=== PATIENT | female | born 1940 | race Caucasian/White ===

== ENCOUNTER → 2016-11-27 | Outpatient (CLI) | payer MEDICARE, BC | LOC: MAMMO 09:19 | DX: Z12.31 Encounter for screening mammogram for malignant neoplasm of breast (principal) | CPT/HCPCS: G0202 ==

== ENCOUNTER 2017-06-21 10:30 | Outpatient (RCR) | payer MEDICARE, BC | END 2017-06-21 11:00 | disposition home or self-care (01) | LOC: PT 10:30 | DX: M54.32 Sciatica, left side (principal) | CPT/HCPCS: G8978-GP; G8979-GP ==

== ENCOUNTER → 2017-06-28 | Outpatient (CLI) | payer MEDICARE, BC | LOC: RAD 09:54 | DX: M79.645 Pain in left finger(s) (principal) ==

== ENCOUNTER → 2017-12-11 | Outpatient (CLI) | payer MEDICARE, BC | LOC: MAMMO 10:30 | DX: Z12.31 Encounter for screening mammogram for malignant neoplasm of breast (principal) ==

== ENCOUNTER → 2018-12-31 | Outpatient (CLI) | payer MEDICARE, BC | LOC: MAMMO 14:57 | DX: Z12.31 Encounter for screening mammogram for malignant neoplasm of breast (principal) ==

== ENCOUNTER → 2020-01-20 | Outpatient (CLI) | payer MEDICARE, BC | LOC: MAMMO 13:41 | DX: Z12.31 Encounter for screening mammogram for malignant neoplasm of breast (principal) ==

== ENCOUNTER 2020-09-14 09:08 | Outpatient (RCR) | payer MEDICARE, BC | END 2020-12-13 | disposition home or self-care (01) | LOC: PT | DX: I63.19 Cerebral infarction due to embolism of other precerebral artery (principal) ==

== ENCOUNTER → 2021-02-15 | Outpatient (CLI) | payer MEDICARE, BC | LOC: MAMMO 10:13 | DX: Z12.31 Encounter for screening mammogram for malignant neoplasm of breast (principal) ==

== ENCOUNTER → 2023-12-24 | Outpatient (CLI) | payer MEDICARE, BC ==
[2023-12-24 14:10] LABS: URINE APPEARANCE SLIGHTLY CLOUDY (CLEAR); URINE COLOR LIGHT YELLOW (YELLOW)
[2023-12-24 14:13] LABS: PH-URINE 5.5 (5.0 - 8.0); URINE BILIRUBIN NEGATIVE (NEGATIVE); URINE BLOOD 1+ (NEGATIVE); URINE GLUCOSE NEGATIVE (NEGATIVE); URINE KETONE NEGATIVE (NEGATIVE); URINE LEUKOCYTE ESTERASE 3+ (NEGATIVE); URINE NITRATE NEGATIVE (NEGATIVE); URINE PROTEIN(semi-quant) NEGATIVE (NEGATIVE); URINE WBC >50 /hpf (0-3)
== END ==
LOC: LAB 13:31
PROVIDERS: Nurse Practitioner
DX: N39.0 Urinary tract infection, site not specified (principal)

== ENCOUNTER → 2024-02-21 | Outpatient (CLI) | payer MEDICARE, BC ==
[~2024-02-21] MED LIST: CALCIUM CARBON500 M3 PO; DESYREL50 MG PO; DONEPEZIL HCL5 M1 PO; ELIQUIS2.5 MG PO; EPINEPHRIN0.3 MG/0.3 IJ; IMODIUM 2MG CAPS2 MG PO; KLOR-CON M1010 MEQ PO; LEVOTHYROXINE100 MC1 PO; LOPRESSOR 225 MG/TAB PO; MELATIN 3 MG-11 TAB PO; MUPIROCIN2% TP; NIZORAL CREAM15 GM TP; ROSUVASTATIN CA20 MG PO; SERTRALINE50 MG PO; TERBINAFINE250 MG PO; TORSEMIDE10 M1 PO
[2024-02-21 12:28] LABS: HEMATOCRIT 35.5 % (37.0-47.0); MEAN CELL VOLUME 75 fl (78-100); MEAN CORPUSCULAR HEMOGLOBIN 23 pg (27-31); MEAN CORPUSCULAR HGB CONC 31 g/dL (33-37); MEAN PLATELET VOLUME 10.8 fl (7.4-10.4); PLATELET COUNT 263 K/mm3 (130-400); RED BLOOD COUNT 4.71 M/mm3 (4.10-5.30); RED CELL DISTRIBUTION WIDTH 18.4 % (11.5-14.5); WHITE BLOOD COUNT 13.7 K/mm3 (4.8-10.8)
[2024-02-21 12:36] LABS: ALBUMIN 3.3 g/dL (3.4-4.8)
[2024-02-21 12:38] LABS: TOTAL PROTEIN 7.4 g/dL (6.2-8.1)
[2024-02-21 12:40] LABS: TOTAL BILIRUBIN 0.9 mg/dL (0.2-1.2)
[2024-02-21 12:49] LABS: BAND 27 % (0-10); LYMPHOCYTE 4 % (20-51); MICROCYTOSIS 1+; MONOCYTE 3 % (3-10); NEUTROPHILS 66 % (42-75)
[2024-02-21 12:50] LABS: HYPOCHROMIA 1+
== END ==
LOC: LAB 11:53
PROVIDERS: Nurse Practitioner
DX: Z00.00 Encounter for general adult medical examination without abnormal findings (principal); M47.816 Spondylosis without myelopathy or radiculopathy, lumbar region; M43.9 Deforming dorsopathy, unspecified

== ENCOUNTER 2024-02-28 09:10 | Inpatient (IN) | payer MEDICARE, BC ==
[~2024-02-28] VITALS: Ht 165.1 cm; Wt 81.8 kg
--- NOTE | 2024-02-28 10:00 | NUR ---
PATIENT SWITCHED FROM ACUTE STAY TO SWINGBED AT THIS TIME. SWINGBED EXPLAINED TO DAUGHTER, ALL QUESTIONS ANSWERED. VERBALIZED UNDERSTANDING.
[2024-02-28 10:42] LABS: HEMATOCRIT 29.2 % (37.0-47.0); HEMOGLOBIN 9.5 g/dL (12.5-16.0); MEAN CELL VOLUME 72 fl (78-100); MEAN CORPUSCULAR HEMOGLOBIN 23 pg (27-31); MEAN CORPUSCULAR HGB CONC 33 g/dL (33-37); MEAN PLATELET VOLUME 10.3 fl (7.4-10.4); PLATELET COUNT 302 K/mm3 (130-400); RED BLOOD COUNT 4.06 M/mm3 (4.10-5.30); RED CELL DISTRIBUTION WIDTH 19.2 % (11.5-14.5); WHITE BLOOD COUNT 13.7 K/mm3 (4.8-10.8)
[2024-02-28] MEDS ORDERED: Piperacillin/Tazobactam Sodium 3.375 GM in NS 100 ML IV SCH (10:45)
[2024-02-28 10:47] LABS: ALBUMIN 2.7 g/dL (3.4-4.8)
[2024-02-28 10:49] LABS: CALCIUM 8.6 mg/dL (8.3-10.5)
[2024-02-28 10:50] LABS: TOTAL PROTEIN 6.6 g/dL (6.2-8.1)
[2024-02-28 10:52] LABS: TOTAL BILIRUBIN 0.9 mg/dL (0.2-1.2)
[2024-02-28] MEDS ORDERED: Ibuprofen 200 MG TAB PO PRN (11:00)
[2024-02-28] MEDS ORDERED: Phenylephrine/Mineral Oil/Petrolatum 57 GM TUBE RC PRN (11:00)
[2024-02-28] MEDS ORDERED: diphenhydrAMINE 25 MG CAP PO PRN (11:00)
[2024-02-28] MEDS ORDERED: Acetaminophen 500 MG TAB PO PRN (11:00)
[2024-02-28] MEDS ORDERED: Acetaminophen 500 MG TAB PO SCH (11:17)
[2024-02-28 11:22] LABS: BAND 2 % (0-10); LYMPHOCYTE 8 % (20-51); NEUTROPHILS 80 % (42-75)
[2024-02-28 11:23] LABS: HYPOCHROMIA 2+; METAMYELOCYTE 2 % (0-0); MICROCYTOSIS 2+; MONOCYTE 7 % (3-10); OVALOCYTES 2+; POLYCHROMASIA 1+; SCHISTOCYTES 1+; TARGET CELLS 1+
[2024-02-28] MEDS ORDERED: traMADol 50 MG TAB PO PRN (12:00)
[2024-02-28] MEDS ORDERED: Ibuprofen 200 MG TAB PO SCH (14:17)
--- NOTE | 2024-02-28 18:49 | NUR ---
REPORT TO JACK ATWOOD.
[2024-02-28 19:00] VITALS: BP 119/72
--- NOTE | 2024-02-28 20:30 | NUR ---
Patient resting in bed with eyes closed. Awakened for HS meds and given crushed in pudding. Returns to resting with eyes closed. Disoriented to place and year. States "I don't know".
[2024-02-28] MEDS ORDERED: Apixaban 5 MG TABLET PO SCH (21:00)
[2024-02-28] MEDS ORDERED: Melatonin 3 MG TAB PO SCH (21:00)
[2024-02-28] MEDS ORDERED: traZODone 50 MG TAB PO SCH (21:00)
[2024-02-28] MEDS ORDERED: Metoprolol Tartrate 25 MG TAB PO SCH (21:00)
[2024-02-28 23:15] VITALS: BP 104/70
[2024-02-29 03:00] VITALS: BP 110/72
--- NOTE | 2024-02-29 06:09 | NUR ---
Patient reports she "thinks so" to if rested well this noc.
[2024-02-29 07:00] VITALS: BP 110/76
[2024-02-29] MEDS ORDERED: Torsemide 20 MG TAB PO SCH (09:00)
[2024-02-29] MEDS ORDERED: Sertraline 50 MG TAB PO SCH (09:00)
[2024-02-29] MEDS ORDERED: Donepezil 5 MG TAB PO SCH (09:00)
[2024-02-29] MEDS ORDERED: Calcium Carbonate 500 MG TAB PO SCH (09:00)
[2024-02-29 11:00] VITALS: BP 101/65
[2024-02-29 15:02] VITALS: BP 115/90
[2024-02-29 19:20] VITALS: BP 111/72
[2024-02-29] MEDS ORDERED: diphenhydrAMINE 25 MG CAP PO SCH (21:00)
--- NOTE | 2024-02-29 23:04 | NUR ---
PT ALERT AND ORIENTED TO SELF, PT REORIENTED. PT RESTING IN BED. CATH CARE PERFORMED BY [facility]. PT ASSESSED AND MEDICATIONS DELIVERED. PT DENIES ANY PAIN AT THIS TIME. PT INNER GROIN AREA RED, CLEANED/DRIED/POWDER APPLIED BY THIS NURSE AND [facility]. PT NOW RESTING IN BED WITH CALL LIGHT IN REACH, PT DENIES ANY FURTHER NEEDS AT THIS TIME
[2024-02-29 23:19] VITALS: BP 113/73
[2024-03-01 03:00] VITALS: BP 126/81
[2024-03-01 07:37] VITALS: BP 140/85
--- NOTE | 2024-03-01 10:10 | NUR ---
PTS DAUGHTER COMES TO NURSES DESK WANTING TO SPEAK TO SOMEONE ABOUT THE PT NOT SLEEPING AT NIGHT. PTS DAUGHTER STATES THAT SHE IS CONCERNED THE PT WILL NOT PARTICIPATE IN THERAPY BECAUSE SHE IS TOO TIRED DURING THE DAY AND DOESNT SLEEP AT NIGHT, SINCE THE PREVIOUS COUPLE OF DAYS WHEN THE PT WAS ASKED IF SHE COULD PARTICIPATE IN MOVEMENTS SHE DID NOT WANT TO. PTS DAUGHTER IS UPSET THAT THE PTS TRAZODONE DONE WAS CHANGED FROM HER HOME DOSE (THE DOSE DID NOT HELP HER SLEEP AT HOME EITHER PER THE DAUGHTER). THIS RN AND PRECIA RN EXPLAINED TO THE PTS DAUGHTER THAT PARTICIPATING IN THERAPY COULD HELP HER BE MORE TIRED AT NIGHT TIME, SHE WAS SLEEPING SO MUCH WHEN SHE GOT HERE THAT THEY WERE NOT GOING TO CONTINUE TO GIVE HER THE HOME DOSE, OUR INPATIENT PROVIDERS WILL BE HERE TOMORROW TO FURTHER DISCUSS HER CONCERNS. PTS DAUGHTER IS FRUSTRATED STATING THAT SHE IS JUST TRYING TO ADVOCATE FOR HER MOTHER AND WAS NOT INTERESTED IN HEARING OUR EXPLANATIONS FOR NOT CHANGING HER MEDICATIONS YESTERDAY WHEN SHE ASKED. THIS RN ACKNOWLEDGED HER CONCERNS MANY TIMES DURING THE CONVERSATION AND LET HER KNOW THE INFO WOULD BE PASSED ON.
[2024-03-01 11:01] VITALS: BP 113/75
--- NOTE | 2024-03-01 13:37 | NUR ---
1200 THIS NURSE TOOK REPORT FROM JACK LARRY. 1245 PTS FAMILY LEFT THE FACILITY. 1250 THIS RN ASSESSED PT. PT WAS RESTING IN HER CHAIR WITH EYES CLOSED. THIS NURSE ASKED ABOUT HER PAIN, PT DENIES ANY PAIN AT THIS TIME.
[2024-03-01 14:51] VITALS: BP 123/84
--- NOTE | 2024-03-01 18:24 | NUR ---
PTS DAUGHTER IS HERE. SHE EXPRESSES ANXIETY AROUND HER MOM GETTING STRONGER AND READY FOR PT IN THE MORNING. PT USED TO TAKE TRAZADONE AT HOME FOR 50 MG. PT HAS BEEN PRESCRIBED 25MG AT THIS TIME. PTS DAUGHTER IS REQUESTING FOR HER TRAZADONE TO BE INCREASED TO HER HOME DOSE. WHICH WAS 50MG. RN EDUCATED FAMILY ABOUT THE USE OF PAIN MEDICATIONS DURING THE DAY CAN CAUSE DROWSINESS.
[2024-03-01 19:00] VITALS: BP 106/73
--- NOTE | 2024-03-01 19:15 | NUR ---
PER PROVIDER ON SHIFT MEDICATIONS WILL BE DISCUSSED WITH A HOSPITALIST ON Saturday03/02/2024.
[2024-03-01 23:06] VITALS: BP 112/71
[2024-03-02 03:00] VITALS: BP 135/78
[2024-03-02 05:35] LABS: BASO # 0.09 K/mm3 (0.02-0.10); EOS # 0.25 K/mm3 (0.04-0.40); EOS % 2.4 % (1.0-5.0); HEMATOCRIT 29.7 % (37.0-47.0); HEMOGLOBIN 9.6 g/dL (12.5-16.0); LYMPH# 1.12 K/mm3 (1.50-4.00); MEAN CELL VOLUME 72 fl (78-100); MEAN CORPUSCULAR HEMOGLOBIN 23 pg (27-31); MEAN CORPUSCULAR HGB CONC 32 g/dL (33-37); MEAN PLATELET VOLUME 10.1 fl (7.4-10.4); MONO # 0.57 K/mm3 (0.20-0.80); NEU # 8.16 K/mm3 (1.40-6.50); PLATELET COUNT 360 K/mm3 (130-400); RED BLOOD COUNT 4.12 M/mm3 (4.10-5.30); RED CELL DISTRIBUTION WIDTH 19.7 % (11.5-14.5); WHITE BLOOD COUNT 10.3 K/mm3 (4.8-10.8)
[2024-03-02 05:45] LABS: ALBUMIN 2.8 g/dL (3.4-4.8)
[2024-03-02 05:46] LABS: CALCIUM 9.1 mg/dL (8.3-10.5)
[2024-03-02 05:47] LABS: TOTAL PROTEIN 7.2 g/dL (6.2-8.1)
[2024-03-02 07:27] VITALS: BP 131/81
--- NOTE | 2024-03-02 16:32 | NUR ---
PATIENT IN RECLINER UPON ENTERING ROOM TO GIVE MORNING MEDICATIONS. PATIENT WAS ABLE TO SWALLOW SMALLER PILLS WHOLE, AND LARGER ONES WERE CRUSHED IN APPLESAUCE. PATIENT HAD BEDBATH THIS AM PRIOR TO BREAKFAST WHILE SHE WAS STILL IN BED PER PCT. DAUGHTER WAS INFORMED. PATIENT HAD COMPLAINED OF NAUSEA TO THERAPY, AND THEN ENDED UP REFUSING THERAPY. AFTER ABOUT AN HOUR PATIENT WAS ASSISTED VIA WHEELCHAIR WITH FAMILY GOING AROUND THE FACILITY. NO FUTHER C/O NAUSEA.
[2024-03-02 20:04] VITALS: BP 110/71
[2024-03-02] MEDS ORDERED: Zolpidem 5 MG TAB PO SCH (21:00)
[2024-03-02] MEDS ORDERED: Torsemide 20 MG TAB PO SCH (21:00)
[2024-03-03 07:00] VITALS: BP 124/77
[2024-03-03] MEDS ORDERED: Miconazole 2% Topical Powder BOTTLE TP SCH (10:17)
--- NOTE | 2024-03-03 10:48 | NUR ---
0700 recieved report from JACK ham
--- NOTE | 2024-03-03 10:48 | NUR ---
Pt ambualted to bathroom with walker and gaitbelt. Pt was a 2 person assist while rising from chair, was a 1 person assist while walking to bathroom for shower. Pt had shower and wound care done. This nurse recieved an order from provider for nistatin for gagandeep-area that is reddened. Pt tolerated shower without any difficulty, was dressed and ambualted back to chair without any difficulty. Daughter updated and all questions answered.
--- NOTE | 2024-03-03 12:18 | NUR ---
pt given 1000mg tylenol for leg pain 11/18.
[2024-03-03 19:00] VITALS: BP 108/73
--- NOTE | 2024-03-03 22:44 | NUR ---
pt alert and oriented x2, pt resting in bed on entry. pt reports no pain at this time. pt assessed and medications delivered without complication. pt resting in bed with pillows set to alleviate pressure by domenico pct and erickson pct. pt now resting well in bed with call light in reach and bed alarm on
--- NOTE | 2024-03-04 06:50 | NUR ---
PT SLEPT VERY WELL LAST NIGHT, PT ALERT AND ORIENTED X3 THIS MORNING, MORNING MEDICATIOSN DELIVERED. PT REPORTS FEELING "WIPED OUT DESPITE REST", PT DENIES FURTHER NEEDS
[2024-03-04 07:10] VITALS: BP 123/75
--- NOTE | 2024-03-04 12:35 | NUR ---
PTS FAMILY HAS REPORTED PT IS FATIGUED. PTS FAMILY IS AKING FOR SOFTER AND EASIER TO EAT FOODS FOR TODAY AND IN THE FUTURE.
--- NOTE | 2024-03-04 12:37 | NUR ---
THIS NURSE NOTICED PT COUGHING AFTER EATING AND DRINKING. PT AND FAMILY ENCOURAGED TO HAVE PT EAT A BITE, FOLLOWED BY A DRINK, AND TO REPEAT. ALWAYS HAVE PT SITTING UPRIGHT IN CHAIR TO EAT.
--- NOTE | 2024-03-04 18:45 | NUR ---
Received report from Akin SANTIAGO.
--- NOTE | 2024-03-04 19:50 | NUR ---
Pt sitting in recliner watching TV. Pt reports pain her bilateral feet. Pt is given Tramadol for pain. Pt is able to take medications 1-2 tabs at a time. Nurse puts lotion on pt back, lower legs and feet. Maya area is very excoriated and the skin is peeling. Maya area is preformed. Badillo cathter is in place and draining to dependent drainage bag. Pt is assisted to bed. [facility]All [facility] in reach of pt, she is encouraged to call if assistance is needed.
[2024-03-04 19:54] VITALS: BP 118/71
--- NOTE | 2024-03-05 07:03 | NUR ---
Pt report given to Akin SANTIAGO.
[2024-03-05 07:40] VITALS: BP 125/77
--- NOTE | 2024-03-05 09:02 | NUR ---
THIS NURSE Assessed pt. While administering medication, pt falls asleep. pt can barely keep her eyes open. Pt will hold her own drink cup. Pt states she needs a nap. pt denies any pain, shortness of breath, or gi distress. Pt ate approximanetly 45% of her breakfast. This nurse covered pt with blanket and her calllight is within reach.
--- NOTE | 2024-03-05 16:14 | NUR ---
PTS DAUGHTER IS PRESENT. PT DENIES ANY PAIN. PT DOESN'T KEEP EYES OPEN AND FALLS ASLEEP WHEN TALKING TO HER.
[2024-03-05 19:00] VITALS: BP 102/64
[2024-03-06 07:00] VITALS: BP 124/76
--- NOTE | 2024-03-06 08:25 | NUR ---
Clarified with Heath in pharmacy that colace is a gelatin product and is a contraindication to patient allergy. He suggests removing it from patient MAR. Dr. Shelton notified.
--- NOTE | 2024-03-06 09:16 | NUR ---
Report given to Cruz Alvarado RN.
[2024-03-06] MEDS ORDERED: Famotidine 20 MG TAB PO PRN (12:30)
--- NOTE | 2024-03-06 18:22 | NUR ---
PT. ATE WELL FOR SUPPER WITH 1:1 STAFF ASSIST. SLEEPY THIS AFTERNOON, MORE AWAKE AT SUPPER TIME.
[2024-03-06 19:28] VITALS: BP 105/68
[2024-03-06] MEDS ORDERED: Apixaban 2.5 MG TABLET PO SCH (21:00)
[2024-03-07 07:15] VITALS: BP 114/72
--- NOTE | 2024-03-07 08:50 | NUR ---
A&O to self, disoriented to place, time and situation, RA, no c/o pain or discomfort. Reports she didn't sleep well last night. Encouraged to open eye. Follows commands. Swallowed pills whole, one at time. 2:1 assist with gait belt and walker from bed to chair. Declined to use commode. Last BM 03/05/24. Chair in locked position, call light within reach.
--- NOTE | 2024-03-07 11:19 | NUR ---
Son at the nurses station requesting information about Zee. Family is concerned about Zee's food intake. They are concerned she is losing weight. Son was told by speech therapy her food consistency would not be changed. She's currently on soft and bite sized. He asked if he could bring in food from outside. Understands her current restrictions. Asking if provider can review current food consistency/diet. Son asking if Zee could change medications from Sertraline to Remeron. The Remeron could possibly help with sleep at night. Requesting hospitalist review medications and possibly change, if applicable. Requests from family discussed with Dr. Cadet.
--- NOTE | 2024-03-07 14:18 | NUR ---
Son at nurse station asking if Dr. Cadet agreed to dicontinue Ambien and Sertraline. Also, start Remeron to help with sleep. Discussed further with Dr. Cadet. Notified Son he plans to make those changes to her medication. Family concerned Zee is sleeping throughout the day. She has reported to family that she is awake throughout the night. Zee ate 50% of lunch, improvement from breakfast. Family asked if the kitchen change her dinner to avoid any mechanical soft foods. Education provided to family that Zee continues to be on a bite size/cut up menu but pork products (or others) may be pureed d/t consistancy. Family asked she recieve the menu items cut up. Kitchen notified, and agrees to comply. Zee reports headache. PRN given, as ordered. Son requested Zee sit in w/c. Zee declined at this time. Chair in locked position. Call light within reach.
--- NOTE | 2024-03-07 14:33 | NUR ---
PCT answered call light. Zee's son notified staff he is giving Zee a sugar cookie. Education given about patient's diet. Chair in locked position. Call light within reach.
--- NOTE | 2024-03-07 15:09 | NUR ---
Son, Gerald at nurses station. Requesting Zee walk d/t no therapy this weekend. 2:1 assist with gaitbelt and walker.
--- NOTE | 2024-03-07 15:32 | NUR ---
Ambulated from chair to restroom. approx 40' 2:1 assist with gaitbelt and walker. Tolerated it well. Resting quietly in chair. Chair alarm on, call light within reach.
[2024-03-07 19:00] VITALS: BP 108/69
--- NOTE | 2024-03-07 19:30 | NUR ---
Patient assisted to bed 1 assist short distance with weak gait and walker. Alert to self, place, time of day but not month or year. Mod assist with legs into bed. HS meds all reviewed and given whole in pudding. BLE elevated on pillow.
[2024-03-07] MEDS ORDERED: Mirtazapine 15 MG TAB PO SCH (21:00)
--- NOTE | 2024-03-07 21:30 | NUR ---
Patient resting with eyes closed.
--- NOTE | 2024-03-07 22:30 | NUR ---
Patient continues resting with eyes closed.
--- NOTE | 2024-03-08 00:40 | NUR ---
THIS RN WENT TO PTS ROOM FOR CALL LIGHT ON. PT STATES SHE IS VERY THIRSTY AND IS GETTING AGGITATED. IT WAS EXPLAINED TO THE PT AGAIN THAT SHE IS ON A FLUID RESTRICTION AND SHE HAS REACHED HER MAX AMOUNT LIQUIDS FOR THIS 24 HOURS. PT WILL BE GIVEN 100MLS MORE AT THIS TIME.
--- NOTE | 2024-03-08 01:23 | NUR ---
Patient resting with eyes closed.
--- NOTE | 2024-03-08 03:00 | NUR ---
Patient awakened when RESOURCE DEVELOPMENT MANAGER into room and repositioned patient.
--- NOTE | 2024-03-08 04:35 | NUR ---
Patient rests with eyes closed. Moving left arm at times.
--- NOTE | 2024-03-08 05:30 | NUR ---
Patient awake calling out water water. Patient has met fluid restriction. Gave 50mls of water but required more to swallow pills and another 50mls given. Repositioned. States "I'm not sure" to getting sleep this noc. Marked hourly rounds on board if patient sleeping or awake, so as family has an idea how her night went.
--- NOTE | 2024-03-08 05:56 | NUR ---
Patient resting with eyes closed.
[2024-03-08 07:00] VITALS: BP 97/61
[2024-03-08 19:00] VITALS: BP 101/66
[2024-03-09 05:56] LABS: BASO # 0.04 K/mm3 (0.02-0.10); EOS % 5.8 % (1.0-5.0); HEMATOCRIT 34.7 % (37.0-47.0); LYMPH# 1.03 K/mm3 (1.50-4.00); MEAN CELL VOLUME 74 fl (78-100); MEAN CORPUSCULAR HEMOGLOBIN 24 pg (27-31); MEAN CORPUSCULAR HGB CONC 32 g/dL (33-37); MEAN PLATELET VOLUME 9.1 fl (7.4-10.4); MONO # 0.42 K/mm3 (0.20-0.80); NEU # 3.35 K/mm3 (1.40-6.50); PLATELET COUNT 559 K/mm3 (130-400); RED BLOOD COUNT 4.69 M/mm3 (4.10-5.30); RED CELL DISTRIBUTION WIDTH 21.3 % (11.5-14.5); WHITE BLOOD COUNT 5.2 K/mm3 (4.8-10.8)
[2024-03-09 06:08] LABS: ALBUMIN 2.9 g/dL (3.4-4.8)
[2024-03-09 06:09] LABS: CALCIUM 8.9 mg/dL (8.3-10.5)
[2024-03-09 06:10] LABS: TOTAL PROTEIN 7.8 g/dL (6.2-8.1)
[2024-03-09 06:12] LABS: TOTAL BILIRUBIN 0.7 mg/dL (0.2-1.2)
[2024-03-09 07:00] VITALS: BP 132/84
--- NOTE | 2024-03-09 09:45 | NUR ---
Pt A&O x3 upon assessment. Denies pain. Pills split in half, taken with water. Evelyne, ARTIFICIAL FLOWERS STARCHER in room to evaluate pt swallowing while eating. States diet can be changed from soft & bite size back to general diet with large foods cut up. Order changed. Pt upright in chair upon departure. Call light in reach, chair alaram set. All needs met at this time.
--- NOTE | 2024-03-09 18:48 | NUR ---
Shift report given to JACK Evans.
[2024-03-09 19:00] VITALS: BP 127/85
[2024-03-10 07:35] VITALS: BP 101/70
--- NOTE | 2024-03-10 11:56 | NUR ---
PROVIDER GAVE ORDERS TO START BLADDER TRAINING. ANDREWS WAS CLAMPPED AT 1030. AT 1115, PATIENT FELT THE URGE TO VOID. ANDREWS UNCLAMPPED FOR ABOUT 10 MIN AND THEN RECLAMPPED. PATIENT CONTINUES TO FALL ASLEEP QUICKLY. WHEN FAMILY IS IN ROOM, THEY TRY AND KEEP HER UP, SO SHE IS ABLE TO SLEEP BETTER AT NIGHT. STAFF IS CURRENTLY SITTING WITH PATIENT IN ROOM FOR LUNCH, FAMILY HAVE LEFT FOR THE DAY.
--- NOTE | 2024-03-10 14:34 | NUR ---
THIS NURSE PROVIDED WOUND DRESSING CHANGE. PT TOLERATED WELL. 1. CLEANSED WOUND WITH HIBICLENS 2. RINSED WITH STERILE WATER AND PATTED DRY WITH STERILE 4X4S 3. APPLIED XEROFAOM GAUZE TO OPEN AREAS 4. APPLIED OPTILOCK 5. WRAPPED WITH SOFT ROLL
--- NOTE | 2024-03-10 18:02 | NUR ---
1600 during pain assesment pt stated she " just woke up and It's like Im in a different world." pt repeated questions this nurse answered. i.e. what time is it?, What is today?, How did I get here?, How long do I have to stay here? pt is oriented to herself.
--- NOTE | 2024-03-10 19:03 | NUR ---
REPORT FROM WAVE, RN
--- NOTE | 2024-03-10 20:00 | NUR ---
PATTIENT TAKEN TO BED
[2024-03-10 20:20] VITALS: BP 131/83
--- NOTE | 2024-03-10 21:00 | NUR ---
AWAKE WATCHING TELEVISION
--- NOTE | 2024-03-10 22:18 | NUR ---
UNCLAMPED ANDREWS, 150 URINE OUT
--- NOTE | 2024-03-11 02:00 | NUR ---
PATIENT RESTING QUIETLY IN BED, BREATHING UNLABORED ON RA
--- NOTE | 2024-03-11 03:12 | NUR ---
ANDREWS UNCLAMPPED. PATIENT RESTING QUIETLY
--- NOTE | 2024-03-11 05:26 | NUR ---
PATIENT RESTING QUIETLY. WAKES EASILY WITH CARES.
--- NOTE | 2024-03-11 07:16 | NUR ---
report recieved from JACK Azul
[2024-03-11 07:35] VITALS: BP 114/74
--- NOTE | 2024-03-11 09:21 | NUR ---
UNLAMPED ANDREWS AT THIS TIME. PT IS NO LONGER ON FLUID RESTIRCTION AT THIS TIME, WILL CONTINUE TO DO CLOSE I/O. PT TOOK MEDICATION WHOLE, BIG PILLS IN HALF WITH WATER.
--- NOTE | 2024-03-11 10:00 | NUR ---
PT WOUND CARE PERFORMED. PT TOLERATED WITHOUT DIFFICULTY. AMBUALTED WITH WALKER AND GAIT BELT TO BATHROOM X1 ASSIST.
--- NOTE | 2024-03-11 11:03 | NUR ---
pt resting in chair at this time. legs elevated.
--- NOTE | 2024-03-11 11:30 | NUR ---
clamped leach at this time
--- NOTE | 2024-03-11 12:42 | NUR ---
pt resting in chair urinal bag unclammped. pt did not eat lunch. states she was not hungry. this nurse offered several times for bites, pt refused. this nurse asked pt to go for a walk, pt declined offer at this time.
--- NOTE | 2024-03-11 13:00 | NUR ---
unclamped leach at this time
--- NOTE | 2024-03-11 13:17 | NUR ---
pt was willing to ambulate with this nurse and pct. pt ambulated about 75 yards with walker and gaitbelt. this nurse educated patient about the imporatnce of moving and not sitting all day.
--- NOTE | 2024-03-11 14:00 | NUR ---
son updated at this time
--- NOTE | 2024-03-11 14:49 | NUR ---
clamped leach at this time
--- NOTE | 2024-03-11 16:12 | NUR ---
urinary catheter removed at this time. pt ambulated to bathroom with walker, gaitbelt, x1 assist.
--- NOTE | 2024-03-11 17:45 | NUR ---
pt ate 90% of supper today. had pleasant conversation with this nurse, tylenol was given for headache, pt stated it was a mild headache. pills cut in half, pt took them with water without any difficulties.
[2024-03-11 19:00] VITALS: BP 106/71
--- NOTE | 2024-03-11 19:20 | NUR ---
Report received from Alexandra SANTIAGO. Patient sitting up in recliner watching TV. A/O to self only. Asks where she is and how she got here, reoriented to place and situation, then asks again a few minutes later. Denies pain, SOA or cough. Assessment completed. Denies wants or needs at this time. Chair alarm on. Call light in reach.
--- NOTE | 2024-03-11 20:41 | NUR ---
HS torsemide held per DrIsak order and times changed.
--- NOTE | 2024-03-11 20:59 | NUR ---
Refused HS supplement.
--- NOTE | 2024-03-12 06:12 | NUR ---
Rested well. Up to BR PRN and voiding without difficulty. AM medications taken whole without difficulty.
--- NOTE | 2024-03-12 06:53 | NUR ---
Report to Argenis SANTIAGO
--- NOTE | 2024-03-12 07:00 | NUR ---
REPORT RECEIVED FROM ISAIAH OROSCO
[2024-03-12 07:10] VITALS: BP 132/78
--- NOTE | 2024-03-12 07:40 | NUR ---
PATIENT ASSISTED TO CHAIR x1 ASSIST WITH WALKER AT THIS TIME. PATIENT DENIES NEEDS OR COMPLAINTS. CHIAR ALARM ON, CALL LIGHT WITHIN REACH
[2024-03-12] MEDS ORDERED: Torsemide 20 MG TAB PO SCH (08:00)
--- NOTE | 2024-03-12 08:50 | NUR ---
PATIENT SITTING IN CHIAR AT THIS TIME, A&Ox2, PLEASENT. PATIENT STATES PAIN TO LEGS AT THIS TIME, DENIES NEED FOR PAIN MEDICATION AT THIS TIME. ASSESSMENT COMPLETE. PATIENT IS FORGETFUL AND CONFUSED. PATIENT WATER REFILLED AT THIS TIME AFTER TAKING MEDICATIONS. PATIENT DENIES OTHER NEEDS OR COMPLAINTS AT THIS TIME. CHAIR ALARM ON, CALL LIGHT WITH REACH.
--- NOTE | 2024-03-12 13:00 | NUR ---
DRESSINGS CHANGED TO BLE AT THIS TIME. NO DRAINAGE NOTED TO OPTILOCK ON LLE. PATIENT TOLERATED PROCEDURE WELL.
--- NOTE | 2024-03-12 14:30 | NUR ---
OIL PROCESSING TECHNICIAN NOTIFED THIS NURSE OF PATIENT REQUETING PAIN MEDICATION. UPON ENTERING ROOM PATIENT SITTING ON TOLIET WITH DIANA, PATIENT IS IN TEARS DUE TO PAIN. PATIENT UNABLE TO RATE PAIN STATES "IT HURTS REALLY BAD". PAIN MEDICATION GIVEN AT THIS TIME.
--- NOTE | 2024-03-12 15:00 | NUR ---
PER JACK LALA STRONGLY ENCOURAGE PATIENT TO DRINK ENSURE AND CHANDRA. OFFER A VARIETY OF OTHER SNACKS IF ENSURE REFUSED. THIS NURSE ASKED PATIENT WHAT SHE LIKES FOR SNACKS, PATIENT STATES "ICE CREAM" .
[2024-03-12 17:18] LABS: URINE APPEARANCE CLOUDY (CLEAR); URINE COLOR YELLOW (YELLOW)
[2024-03-12 17:19] LABS: PH-URINE 6.5 (5.0 - 8.0); URINE BILIRUBIN NEGATIVE (NEGATIVE); URINE BLOOD TRACE (NEGATIVE); URINE GLUCOSE NEGATIVE (NEGATIVE); URINE KETONE NEGATIVE (NEGATIVE); URINE LEUKOCYTE ESTERASE 3+ (NEGATIVE); URINE NITRATE NEGATIVE (NEGATIVE); URINE PROTEIN(semi-quant) NEGATIVE (NEGATIVE); URINE WBC >50 /hpf (0-3)
--- NOTE | 2024-03-12 17:20 | NUR ---
UA RESULTS RECEIVED, PROVIDER MADE AWARE.
--- NOTE | 2024-03-12 18:58 | NUR ---
REPORT GIVEN TO ANGELIC Dennis RN
[2024-03-12 19:20] VITALS: BP 132/83
--- NOTE | 2024-03-12 20:00 | NUR ---
REPORT RECEIVED FROM JACK TALBOT. PT RESTING IN CHAIR AND STATED URGE TO VOID. THIS RN AND ANA LUISA RN ASSISTED TO BR WITH WALKER. PT VOIDED 300mL WITHOUT DIFFICULTY, DESIRED TO LAY IN BED AFTER. ASSISTED PT TO BED. PT INQUIRED ABOUT LOCATION AND LENGTH OF STAY IN HOSPITAL MULTIPLE TIMES - REDIRECTED EACH TIME. PT IS SOMEWHAT ORIENTED TO PLACE, QUESTIONING "I'M IN [place], RIGHT?" ORIENTED TO PERSON AND KNOWS CHILDREN/FAMILY. PT DECLINED TO FINISH PUDDING DESPITE ENCOURAGEMENT, SIPPING WATER WITHOUT DIFFICULTY. PT RESTING IN BED WITH PILLOWS, SOFT TOUCH CALL LIGHT IN REACH, DENIES FURTHER NEEDS AT THIS TIME.
[2024-03-12] MEDS ORDERED: Amoxicillin 250 MG CAP PO SCH (21:00)
[2024-03-13 07:26] VITALS: BP 116/74
--- NOTE | 2024-03-13 08:38 | NUR ---
PT IS PLEASANT THIS MORNING. SHE IS EATING SITTING UP IN HER RECLINER. PT IS FORGETFUL. SHE ASKS "HOW LONG HAVE I BEEN HERE?", "HOW DID I GET HERE?", "HOW LONG DO I HAVE TO STAY" FREQUENTLY DUEING ASSESMENT AND DURING ADMINISTERING PILLS. 3151 PATIENTS SON, , AND GRANDSON ARRIVED TO VISIT. PT WAS ABLE TO TAKE MEDICATION IF PILLS ARE SPLIT IN HALF. PT DENIES ANY PAIN EXCEPT FOR BLE TENDERNESS. PTS FAMILY PLANS TO BRING FOOD IN TO INCREASE FOOD INTAKE.
[2024-03-13] MEDS ORDERED: Sertraline 50 MG TAB PO SCH (14:08)
--- NOTE | 2024-03-13 15:17 | NUR ---
1439 THIS NURSE ADMINISTERED TYLENOL FOR A HEADACHE. PT REQUIRES PILLS TO BE SPLIT IN HALF ONE AT A TIME.
--- NOTE | 2024-03-13 19:00 | NUR ---
Recevied report from Akin SANTIAGO.
[2024-03-13 19:15] VITALS: BP 123/75
--- NOTE | 2024-03-13 20:30 | NUR ---
Pt laying in bed watching TV when nurse arrives to preform assessmnet. Pt reports some pain in her lower legs where the dressing are. Dressing are dry and in place when assessed, dressing do not appear to be tight. No abnormal fingings upon assessment. Pt talks about her day and working with the therapy department. Explained to pt that her medications will be brought later. Pt states understanding. Call light in reach of pt. Pt denies any needs at this time.
--- NOTE | 2024-03-13 21:05 | NUR ---
Pt calls for the bathroom, pt ambualtes to the bathroom with the walker and assist x 2. Pt is returned to the bed when done, takes medication 2 pills at a time. Denies any needs at this time. Call light in reach of pt and bedalarms on for safety.
--- NOTE | 2024-03-13 22:00 | NUR ---
Pt restingin bed TV is on pt eyes are closed. Call light in reach of pt.
--- NOTE | 2024-03-13 23:17 | NUR ---
Pt laying in bed with eyes closed, even unlabored resperations. Call light in reach. No distress noted.
--- NOTE | 2024-03-13 23:30 | NUR ---
Pt is heard yelling help when stqaff eneters room pt states she needs to go to the bathroom. Call light was laying on pt chest, when asked why she didint use her call light pt states she did not know she needed to.
--- NOTE | 2024-03-14 00:16 | NUR ---
Pt denies pain, no distress noted while in room. Call light laying on pt chest
--- NOTE | 2024-03-14 02:30 | NUR ---
Pt resting in bed with even breaths, no distress noted. Call light is seen laying within the reach of the pt.
--- NOTE | 2024-03-14 04:00 | NUR ---
Pt resting in bed with eyes closed. Pt is woke for nurse to see if pt is having any pain. she denies pain when asked. Call light in reach of pt, she is encouraged to call is needs arise.
--- NOTE | 2024-03-14 06:22 | NUR ---
Pt is woke for morning medications. Denies pain when asked. Pt states that she has slept well through out the night. Call light in reach of pt, she is encouraged to call if any needs arise.
--- NOTE | 2024-03-14 07:00 | NUR ---
RESUMED CARE FROM JACK DAVIS.
[2024-03-14 07:50] VITALS: BP 121/81
--- NOTE | 2024-03-14 08:10 | NUR ---
PATIENT SETS OFF BED ALARM AT THIS TIME. THIS RN INTO ROOM, PATIENT STATES SHE NEEDS TO USE THE RESTROOM. THIS RN ASSISTED PATIENT WITH GAITBELT AND WALKER FROM BED TO RESTROOM. MEDIUM STOOL AND UNMEASURED URINE. THIS RN ASSISTED PATIENT FROM BATHROOM TO RECLINER, STEADY GAIT NOTED. DRESSING CHANGES TO BLE. ABRASION TO RIGHT MOELLER SCABBED OVER, LEFT DIANA. XERFORM AND GAUZE REPLACED TO LEFT MOELLER. PATIENT REMAINS IN RECLINER, ALARMED, CALL LIGHT AND PERSONAL BELONGINGS WITHIN REACH.
--- NOTE | 2024-03-14 08:25 | NUR ---
THIS RN IN ROOM FOR AM ASSESSMENT AND MEDICATIONS. MEDICATIONS PROVIDED 2 AT A TIME. PATIENT IRRITABLE THIS AM. THIS RN HAS TO EDUCATE THE IMPORTANCE OF MEDICATION PATIENT WAS FRUSTRATED WITH THE AMOUNT. BREAKFAST PROVIDED TO PATIENT, PATIENT CONTINUOUSLY STATES "I AM NOT HUNGRY" OR "I DON'T WANT ANY OF THAT", THIS RN EDUCATED PATIENT ABOUT CURRENT WEIGHT LOSS AND FAMILY CONCERN OF WEIGHT LOSS. PATIENT REPLIED WITH "OH I WOULD LOVE TO HEAR THAT FROM THEIR MOUTH" AMOUNT OF WEIGHTLOSS DISCUSSED WITH PATIENT, DOUGLAS UNINTERESTED IN CONVERSATION. THIS RN REQUESTS PCT CRYSTAL TO ASSIST WITH MEAL.
--- NOTE | 2024-03-14 08:55 | NUR ---
JORGE LUIS LEDESMA REPORTS TO THIS RN PATIENT CONTINUES TO BE IRRITABLE, WANTING TO GO TO BED RATHER THAN EAT. WITH EACH ATTEMPT TO HELP FEED PATIENT SHE EITHER REFUSES THE FOOD OR REPORTS THE FOOD IS DISGUSTING. PATIENT REQUESTED APPLE JUICE AND PROCEEDED TO STATE THE APPLE JUICE WAS ALSO DISGUSTING. WILL ATTEMPT AN ENSURE.
[2024-03-14] MEDS ORDERED: Sertraline 50 MG TAB PO SCH (09:00)
--- NOTE | 2024-03-14 09:10 | NUR ---
PATIENT SLOUCHING IN RECLINER, READJUSTED AT THIS TIME. IN BETTER SPIRITS, JOKING WITH ADRIA RN. PILLOW PLACE UNDER LEFT SIDE FROM REPORT OF DISCOMFORT TO BOTTOM. PATIENT REMAINS IN RECLINER, ALARMED, CALL LIGHT AND PERSONAL BELONGINGS WITHIN REACH.
--- NOTE | 2024-03-14 09:30 | NUR ---
CLARIFIED WITH DEREK MAO THAT DRESSINGS ARE NO LONGER NEEDED ON BILATERAL LOWER EXREMITIES. DRESSING CHANGE ORDER REMAINS PRN IF DRAINAGE WERE TO REAPPEAR. DRESSING REMOVED AT THIS TIME. PATIENT SON TRAVIS UPDATED.
--- NOTE | 2024-03-14 10:31 | NUR ---
SON AT BESIDE, FED PATIENT POTATO SOUP FROM HOME AND PATIENT CONSUMED 100%.
--- NOTE | 2024-03-14 11:06 | NUR ---
PCT KATIE TAKING PATIENT FOR A WALK WITH SON TRAVIS AT THIS TIME.
--- NOTE | 2024-03-14 14:10 | NUR ---
REPORT TO JACK CHRISTENSEN.
--- NOTE | 2024-03-14 18:40 | NUR ---
Received report from Nallely SANTIAGO
[2024-03-14 19:00] VITALS: BP 130/84
--- NOTE | 2024-03-14 19:30 | NUR ---
Pt was sitting in her recliner watching TV. Nursing assessment preformed. Pt reports no pain when asked. She denies any needs when asked. Lower legs are red, dry and scaly with a few scabed areas but no drainage areas are left open to air. Call light in reach of pt. She is encouraged to call if assistance is needed.
--- NOTE | 2024-03-14 20:47 | NUR ---
Pt can be heard yelling, staff eneters room to assit with pt. pt reports he neck is uncomfortable and her head needs to be raised. Education provided to pt on how to properly use the call light in which the pt was holding on to. Pt stated she didnt know she was supposed to use her call light when she needed help. When staff left pt was holding on to her call light.
--- NOTE | 2024-03-14 22:11 | NUR ---
Pt laying in bed with call light laying on across her chest. No distress noted.
--- NOTE | 2024-03-14 23:11 | NUR ---
Pt was yelling out even though her call light was laying on her chest. Pt stated she needed a drink of water that was sitting on the bedside table in reach of pt. Pt was again educated to use her call light to call for asistance.
--- NOTE | 2024-03-15 00:07 | NUR ---
Pt laying in bed with eyes closed. Call Light laying in on pt chest. Pt denies pain when asked.
--- NOTE | 2024-03-15 02:00 | NUR ---
Pt resting with eyes closed. Call light is laying on pt chest.
--- NOTE | 2024-03-15 04:05 | NUR ---
Pt resting in bed no distress noted. Even breaths. Call light laying on pt chest.
--- NOTE | 2024-03-15 05:51 | NUR ---
Pt is woke for 6 am med. Pt denies needs when asked. Pt states she slept well Call light in reach of pt. Pt is encouraged to call if assistance is needed.
[2024-03-15 07:10] VITALS: BP 113/72
--- NOTE | 2024-03-15 16:51 | NUR ---
PT ALERT AND DISORIENTED. SHE WOKE UP THIS MORNING UPSET. PCT REPORTS PT VERBALLY AGRESSIVE/AGITATED WITH AM CARES. PT ATE A SMALL BREAKFAST AND HAS SINCE BEEN PLEASANT AND TALKATIVE WITH STAFF. 1:1 ASSIST FOR MEALS DUE TO QUEING NEEDS. PT TRANSFERS WITH AX1, WALKER AND GAIT BELT. PT HAS BEEN UP IN WHEELCHAIR INTERMITTENTLY TODAY AND WAS TAKEN FOR A WALK AROUND THE HOSPITAL. PT IS FORGETFUL AND ASKS THE SAME QUESTIONS EVERY FEW MINUTES. SHE DOES NOT KNOW WHERE SHE IS OR WHY SHE IS HERE. WHEN PATIENT NEEDS ASSISTANCE SHE YELLS OUT FOR HELP. CALL LIGHT WITHIN EASY REACH AT ALL TIMES AND INSTRUCTION ON USE PROVIDED WITH EACH INTERACTION WITH STAFF.
[2024-03-15 19:00] VITALS: BP 124/75
--- NOTE | 2024-03-15 20:45 | NUR ---
PT ALERT BUT FORGETFUL. LUNGS CLEAR. ABD SOFT AND NON TENDER. SKIN WARM AND DRY. DENIES PAIN. ATE ABOUT 180MLS OF HER SOUP THAT WAS LEFT BY FAMILY WITHOUT DIFFICULTY. PT STATES THE SOUP WAS "DELICIOUS" AND "I LOVE POTATO SOUP".
--- NOTE | 2024-03-16 02:28 | NUR ---
This nurse assisted pt to the restroom. Pt voided. this nurse assisted pt to bed, she used minimal help from this nurse to bring her legs up into bed. Pt posistioned supine from right side lying.
[2024-03-16 07:29] VITALS: BP 119/76
[2024-03-16 19:55] VITALS: BP 113/79
--- NOTE | 2024-03-16 22:52 | NUR ---
PT ALERT AND ORIENTED X4, PT RESTING IN BED AFTER RETURNING FROM THE RESTROOM WITH ASSISTANCE FROM [facility]. PT REPORTS NO PAIN BUT WINCES SLIGHTLY WHEN ASSESSING LOWER LEGS. PT ASSESSED AND MEDICATIONS GIVEN WITHOUT COMPLICATION. PT REPORTS HAVING A GOOD DAY. PT GIVEN SIPS OF WATER. PT DENIED ANY FURTHER NEEDS AT THIS TIME. PT NOW RESTING WITH BED ALARM ON AND LARGE CRUZ BUTTON PLACED IN REACH FOR STAFF CALLS
[2024-03-17 07:50] VITALS: BP 111/76
[2024-03-17 19:00] VITALS: BP 124/82
--- NOTE | 2024-03-17 20:35 | NUR ---
Report received from Beatrice SANTIAGO. Patient rests awake, supine in bed. A/O to self and only. Denies pain, SOA or cough. Assessment completed. HS medications taken whole 2 at a time. Denies wants or needs. Reoriented to place, situation, time of day and use of call light. Bed alarm on. Call light in reach.
--- NOTE | 2024-03-18 06:10 | NUR ---
Rested well. Up to BR with SBA PRN to void. Continent of B&B. Tylenol given this AM for reported "migraine headache".
--- NOTE | 2024-03-18 07:05 | NUR ---
Report to Felix SANTIAGO.
[2024-03-18 07:25] VITALS: BP 95/62
--- NOTE | 2024-03-18 07:37 | NUR ---
PT HYPOTENSIVE THIS MORNIG, PROVIDER KIRAN AWARE, AWAITING LAB RESULTS NO ORDERS AT THIS TIME
[2024-03-18 07:48] LABS: BASO # 0.07 K/mm3 (0.02-0.10); EOS # 0.22 K/mm3 (0.04-0.40); EOS % 3.1 % (1.0-5.0); HEMOGLOBIN 11.2 g/dL (12.5-16.0); LYMPH# 1.61 K/mm3 (1.50-4.00); MEAN CELL VOLUME 75 fl (78-100); MEAN CORPUSCULAR HEMOGLOBIN 23 pg (27-31); MEAN CORPUSCULAR HGB CONC 31 g/dL (33-37); MEAN PLATELET VOLUME 9.5 fl (7.4-10.4); MONO # 0.58 K/mm3 (0.20-0.80); NEU # 4.57 K/mm3 (1.40-6.50); PLATELET COUNT 580 K/mm3 (130-400); RED CELL DISTRIBUTION WIDTH 21.3 % (11.5-14.5); WHITE BLOOD COUNT 7.1 K/mm3 (4.8-10.8)
[2024-03-18 08:00] LABS: CALCIUM 9.3 mg/dL (8.3-10.5)
--- NOTE | 2024-03-18 08:00 | NUR ---
PT ALERT AND ORIENTED X4, PT RESTING IN BED. PT HYPOTENSIVE THIS MORNING DIURETIC AND HTN MED HELD. PT ASSESSED AND MEDICATIONS DELIVERED WITHOUT COMPLICATION. PT HAS SORE ON BUTTOCK THAT HAS MEPILEX ON IT. PT REPORTS SLEEPING WELL, PT BILATERAL LOWER LEGS OPEN TO AIR, NO EDEMA OR DRAINAGE NOTED. PT NOW RESTING IN BED WITH CALL LIGHT IN REACH AND BED ALARM ON
[2024-03-18 08:02] LABS: TOTAL PROTEIN 7.3 g/dL (6.2-8.1)
[2024-03-18 08:04] LABS: TOTAL BILIRUBIN 0.6 mg/dL (0.2-1.2)
[2024-03-18 09:53] VITALS: BP 112/80
--- NOTE | 2024-03-18 13:40 | NUR ---
PT RESTING IN CHAIR AT THIS TIME, NO FURHTER NEEDS EXPRESSED
--- NOTE | 2024-03-18 15:11 | NUR ---
pt confused at this time, pt reoriented.
[2024-03-18 19:20] VITALS: BP 121/81
[2024-03-19 07:25] VITALS: BP 103/67
--- NOTE | 2024-03-19 08:41 | NUR ---
THIS NURSE ASSESED PT. PT HAS A MEPILEX IN PLACE INSIDE GLUTEAL FOLD. [facility], PCT ASSESED HER GROIN AND APPLIED POWDER, NO S/S OF SKIN BREEAKDOWN IN THIS AREA. PTS LOWER LEGS ARE REDDENED, WITH SOME OPENINGS, THESE ARE LFT TO OPEN AIR. PT TAKES PILLS SPLIT IN HALF ONE AT A TIME WITH WATER. THIS TAKES HER ANYWHERE FROM 10 -15 MINUTES, SHE NEEDS RE DIRECTION AT TIMES. PT HAD A BM THIS AM. PT IS SITTING UP IN HER CHAIR.
--- NOTE | 2024-03-19 10:20 | NUR ---
THERAPY ALERTED THIS RN TO PTS LEGS. PTS LEGS HAVE CHANGED IN COLOR TO A DEEP PURPLE. PT STATES THEY ARE MORE TENDER THAN USUAL. KB CAME IN TO ASSESS THEM. KB PROVIDED NEW CREAM TO APPLY ONCE DAILY FOR EXCESSIVE FLAKING.
--- NOTE | 2024-03-19 11:08 | NUR ---
SKIN THIS NURSE REMOVED AND REPLACED MEPILEX IN PTS GLUTEAL FOLD. PT VOICES PAIN. UPON REMOVING THE MEPILEX A SCANT AMOUNT OF DRAINAGE IS ON THE BANDAGE.
[2024-03-19 19:38] VITALS: BP 135/80
--- NOTE | 2024-03-19 19:45 | NUR ---
Patient sitting up in recliner. Alert and oriented x 3 at this time. Denies pain. HS meds reviewed and taken 1 at a time.
--- NOTE | 2024-03-20 03:23 | NUR ---
Patient has been resting with eyes closed. Respirations with ease.
[2024-03-20 07:10] VITALS: BP 116/79
--- NOTE | 2024-03-20 13:53 | NUR ---
THIS NURSE PROVIDED SHOWER ROUTINE. PT WAS HANDED SOAPY WASHCLOTH, PT WAS ABLE TO WASH HERSELF EXCEPT FOR PERINEUM. THIS NURSE ASSISTED PT WITH WASHING. PT SCOOTED OUT FROM SHOWER. PT REQUIRED HELP WITH SOCKS, PANTS AND HER LONG SLEEVE SHIRT. PT TONEINCIVLEY KNEW WHAT TO DO WITH HER BRA. PT AMBULATED WITH HER WALKER BACK TO HER CHAIR.
[2024-03-20 19:00] VITALS: BP 127/67
--- NOTE | 2024-03-20 21:00 | NUR ---
Report received from Rosemarie SANTIAGO. Patient rests in bed on R side with eyes closed. Easily awakens to verbal stimuli and promptly states "I have to go to the bathroom". Assisted to BR with SBA and walker. Gait steady. Voids and assisted back to bed. Able to get own legs in bed. A/O to self, and month only. Reorientation provided for place and year. Denies pain, SOA or cough. Assessment completed. HS medications taken whole 1-2 at a time with some diffculty noted. No coughing or choking. Has yeasty reddness below L breast and L groin. Nystation powder applied. Patient positioned for comfort. Denies questions, wants or needs at this time. Bed alarm on. Call light in reach.
--- NOTE | 2024-03-21 06:04 | NUR ---
Rested well through the night. Up to BR PRN. Intermittent leg pain/stiffness with ambulation.
--- NOTE | 2024-03-21 07:19 | NUR ---
Report to Vandana SANTIAGO
[2024-03-21 07:30] VITALS: BP 97/60
--- NOTE | 2024-03-21 08:20 | NUR ---
Patient alert and ambulates with 1 assist and walker slow and steadily to recliner. Education on elevating feet provided. Denies pain and feet elevated. BLE red to purple with cap refill >3 sec and cool to touch. Pedal pulses +1 bilaterally. Upon elevation, feet become less red. Both heels and feet are dry and peeling some. Legs are non-pitting edematous. Some scabbing and flaking skin to BLE but no weeping. Fungal powder applied under left breast and left groin for redness. Refused breakfast. Took pills crushed in apple sauce with some difficulty because she stated she just did not want to eat.
--- NOTE | 2024-03-21 19:02 | NUR ---
Patient alert but confused throughout the day. She had a nap in the afternoon. Denies pain. Consistent education and encouragement and assist to elevate legs. Supervised with dinner and patient ate 1/2 pineapple bowl and some bites of rice. She has had difficulty swallow pills individually with applesauce. When crushed she struggled to swallow because of the bitterness and not wanting to eat. Lots of encouragement and medications taken. Patient ambulates one person assist. and ditch repairer Heather visited this afternoon.
[2024-03-21 19:25] VITALS: BP 121/84
--- NOTE | 2024-03-21 20:15 | NUR ---
Report received from Vandana SANTIAGO. Patient sitting up in recliner watching [id number] music show. A/O to self, and Month. Denies pain. HS medications taken whole 1-2 at a time. Assessment completed. Patient is a 1:1 assist with walker to BR. Continent of B&B. Uses call light appropriately for wants and needs.
--- NOTE | 2024-03-22 06:54 | NUR ---
Report to Vandana SANTIAGO
[2024-03-22 08:37] VITALS: BP 115/77
--- NOTE | 2024-03-22 08:45 | NUR ---
Patient alert but confused this morning. Patient provided medication crushed in yogurt this morning and was able to swallow all but did not like the taste. She swallowed the crushed pills much better than whole in applesauce or pudding. She at more of her breakfast today than yesterday at 50%. Reports pain at a 6/10 in her legs because of them being elevated and requested that her legs be put down as soon as she was in the recliner. Education and reminders that her legs need to be elevated to help with circulation. BLE slightly purple/reddened. Respirations regular and unlabored. HR and rhythm regular. Lungs in bases slightly diminished.
--- NOTE | 2024-03-22 14:08 | NUR ---
Son here to visit. Patient ambulated in hallway. Given motrin for 6/10 leg pain. Pain reduced down to a 2. Right knee is slightly edematous. Son states this has been an ongoing pain on/off for years.
--- NOTE | 2024-03-22 16:25 | NUR ---
Patient ate well for lunch, enjoyed the hamburger. PCT reports that she had diarrhea x 4 this morning. No diarrhea this afternoon. No abdominal pain. BS active in all four quadrants. Denies pain. BLE elevated. Zee took and afternoon nap for about one hour in recliner this afternoon.
[2024-03-22 19:00] VITALS: BP 128/82
--- NOTE | 2024-03-22 19:04 | NUR ---
Report given to ISAIAH Oakley.
--- NOTE | 2024-03-22 19:40 | NUR ---
Report received from Vandana SANTIAGO. Patient in room with WOODS BOSS getting ready for bed. A/O to self, only. Confused to date, year, situation. Denies pain. HS medications taken whole 1-2 at a time. Swallows easily tonight. Assessment completed. Bed alarm on, call light in reach.
--- NOTE | 2024-03-23 04:09 | NUR ---
Has been resting well. Awake now and up to BR with SBA and walker. Denies pain. Drinking water well. States "I'm thirsty" frequently.
--- NOTE | 2024-03-23 07:16 | NUR ---
Report to Beatrice SANTIAGO.
[2024-03-23 08:31] VITALS: BP 122/75
--- NOTE | 2024-03-23 17:51 | NUR ---
PATIENT IS ALERT TO SELF. SHE HAS BEEN PLEASENT AND CFOOPERATIVE WITH CARE. SHE IS FORGETFUL, HER AND SON WERE BOTH HERE VISITING AND SHE HAS ASKED SEVERAL TIMES IF THEY WERE COMING IN. WHEN SHE IS INFORMED THAT THEY WERE BOTH HERE, SHE RESPONDS WITH, "I MUST HAVE BEEN SLEEPING" OR "I GUESS I FORGOT." SHE HAS BEEN AWAKE FOR MAJORITY OF THE SHIFT, EITHER READING HER HAIM CARDS OR REARRANGING HER ANGULO. SHE DID HAVE SOME NAUSEA THIS MORNING AFTER BREAKFAST. SHE WAS OFFERED A PRN MED, BUT WASN'T SURE IF SHE WANTED TO TAKE IT. THIS NURSE INFORMED PATIENT WE COULD WAIT ABOUT 15-20 MINS, AND SEE IF THE NAUSEA SUBSIDED. NAUSEA DID SUBSIDE. NO OTHER COMPLAINTS NOTED.
[2024-03-23 19:00] VITALS: BP 110/53
--- NOTE | 2024-03-23 19:30 | NUR ---
Report received from Beatrice SANTIAGO. Patient sitting up in recliner with legs elevated. Patient is watching TV. A/O to self,, and Month. States year as 2023 and states does not know place but then when told, states "oh yes, Lane". Denies pain. Legs dry, flakey with scabs present, no drainage noted. +1 edema, painful to touch. Assessment completed. Continent of B&B. Calls for assist most of time with some setting off the bed alarm. Ambulates with 1:1 assist and walker.
--- NOTE | 2024-03-24 05:01 | NUR ---
Complains of a H/A. Tylenol ES and scheduled AM medications taken at this time. Assisted up to BR 1:1 assist with walker. Rests well this shift.
--- NOTE | 2024-03-24 07:04 | NUR ---
Report to Beatrice SANTIAGO.
[2024-03-24 07:25] VITALS: BP 117/71
--- NOTE | 2024-03-24 11:16 | NUR ---
HOME MEALS FROM PATIENT FRIDGE DISPOSED OF AND DISHES WASHED. CLEAN CONTAINERS TAKEN TO ROOM.
--- NOTE | 2024-03-24 13:56 | NUR ---
Renay from [facility] called. They received the order for bilateral lower extermity US arterial study. They need a new order for US bilateral lower extremity Chronic Vein study. Renay will reach out to the family to schedule a Vein Clinic appointment. .
[2024-03-24 19:00] VITALS: BP 107/62
[2024-03-25 07:35] LABS: BASO # 0.07 K/mm3 (0.02-0.10); EOS # 0.26 K/mm3 (0.04-0.40); EOS % 3.7 % (1.0-5.0); HEMATOCRIT 34.8 % (37.0-47.0); HEMOGLOBIN 10.9 g/dL (12.5-16.0); LYMPH# 1.57 K/mm3 (1.50-4.00); MEAN CELL VOLUME 75 fl (78-100); MEAN CORPUSCULAR HEMOGLOBIN 23 pg (27-31); MEAN CORPUSCULAR HGB CONC 31 g/dL (33-37); MEAN PLATELET VOLUME 10.1 fl (7.4-10.4); MONO # 0.55 K/mm3 (0.20-0.80); NEU # 4.66 K/mm3 (1.40-6.50); PLATELET COUNT 323 K/mm3 (130-400); RED BLOOD COUNT 4.65 M/mm3 (4.10-5.30); RED CELL DISTRIBUTION WIDTH 21.3 % (11.5-14.5); WHITE BLOOD COUNT 7.1 K/mm3 (4.8-10.8)
[2024-03-25 07:43] LABS: CALCIUM 8.7 mg/dL (8.3-10.5)
[2024-03-25 07:46] LABS: TOTAL BILIRUBIN 0.7 mg/dL (0.2-1.2); TOTAL PROTEIN 7.1 g/dL (6.2-8.1)
--- NOTE | 2024-03-25 07:49 | NUR ---
Critical K+ 2.9 verbalized to DEREK Ochoa.
[2024-03-25] MEDS ORDERED: Potassium Bicarbonate/Citrate 20 MEQ Effervescent TAB PO SCH (08:07)
[2024-03-25 08:38] VITALS: BP 125/80
[2024-03-25] MEDS ORDERED: Magnesium Oxide 400 MG TAB PO SCH (11:36)
--- NOTE | 2024-03-25 12:36 | NUR ---
Multi disciplinary rounds complete. Pt son Gerald DPOA present and daughter on facetime. Will plan for discharge Saturday after labs reviewed and medically cleared. They would like order for home health services to be sent to [facility] as they have used them in the past. After meeting I phoned Gerald and received verbal consent for [facility].
--- NOTE | 2024-03-25 14:04 | NUR ---
Called [facility]. Spoke with Juliano, asked if they would accept Zee Vega as a return patient. Juliano will speak with her clinical director and let us know if they will accept. [facility] Faxed clinical updates.
[2024-03-25 19:00] VITALS: BP 125/76
--- NOTE | 2024-03-25 20:30 | NUR ---
Report received from Carol RN. Patient rests in bed with eyes closed. Awakens easily with verbal stimuli. Assessment completed. Denies pain. HS medications taken whole, without difficulty. Ambulated in the hallway tonight with MOVEMENT THERAPIST. Gait steady with walker. Calls for assist to BR PRN. Remains confused/forgetful.
[2024-03-26 05:40] LABS: CALCIUM 8.9 mg/dL (8.3-10.5)
--- NOTE | 2024-03-26 05:52 | NUR ---
Rested well through the night. Up to BR PRN with 1:1 assist and walker. AM medications taken whole, sitting on EOB. Able to get legs in and out of bed independently. Bed alarm on. Call light in reach
--- NOTE | 2024-03-26 06:58 | NUR ---
Report to Akin SANTIAGO.
[2024-03-26 07:00] VITALS: BP 105/68
[2024-03-26] MEDS ORDERED: Potassium Bicarbonate/Citrate 20 MEQ Effervescent TAB PO ONE (13:15)
[2024-03-26 19:00] VITALS: BP 109/72
--- NOTE | 2024-03-26 19:43 | NUR ---
Report received from Akin SANTIAGO. Patient sitting up in recliner eating ice. A/O x4 tonight. Forgetful. Denies pain, shortness of breath or cough. Discussed PO potassium, states "I don't want that". Explained importance of potassium as it help regulate the heart and patient is agreeable at this time to drink it. Assessment completed. Patient ambulates to BR with 1:1 assist and walker PRN with staff. Chair alarm on. Call light in reach.
--- NOTE | 2024-03-26 21:36 | NUR ---
HS medications taken whole, drank potassium after discussion of effects of potassium on heart. Ambulated in mosher earlier with COMPUTATIONAL SCIENTIST
--- NOTE | 2024-03-27 02:35 | NUR ---
Up to BR with 1:1 assist and walker. Reports having low back pain. 11/18. Tramadol taken at this time.
--- NOTE | 2024-03-27 03:30 | NUR ---
Rests with eyes closed.
--- NOTE | 2024-03-27 05:51 | NUR ---
Awakened to go to BR and obtained daily weight. Had small soft formed BM. Had some nausea after coming back from BR, no emesis. States having some nasal congestion as well. Weight 180.0. Up 3.9 lbs. Weight checked x2 with bed zero'd out. Assisted back to bed. Positioned for comfort. Bed alarm on. Call light in reach.
--- NOTE | 2024-03-27 06:01 | NUR ---
Temp check 98.5
--- NOTE | 2024-03-27 06:49 | NUR ---
Dr. Fam notified of weight gain of 3.9 lbs Order for BNP
--- NOTE | 2024-03-27 06:51 | NUR ---
Barb in lab notified of BNP
--- NOTE | 2024-03-27 07:00 | NUR ---
REPORT RECIEVED FROM ISAIAH OROSCO
[2024-03-27 07:10] VITALS: BP 106/65
--- NOTE | 2024-03-27 07:14 | NUR ---
Report to Argenis SANTIAGO
--- NOTE | 2024-03-27 07:15 | NUR ---
PATIENT RESTING IN BED WITH EYES CLOSED. BED IN LOWEST POSTION, ALARM ON, CALL LIGHT WITHIN REACH
[2024-03-27] MEDS ORDERED: PROBIOTIC1 EAC2 PO (07:50)
[2024-03-27] MEDS ORDERED: AZO D-MANNOSE500 MG PO (07:51)
--- NOTE | 2024-03-27 08:00 | NUR ---
PCT REPORTS PATIENT REFUSING TO GET OUT OF BED STATING SHE DOES "NOT FEEL GOOD" THIS NURSE ASSESSED PATIENT AT THIS TIME. PATIENT STATES SHE IS "SICK TO MY STOMACH." THIS NURSE OFFERED PATIENT CRAKCERS AT THIS TIME. PATIENT REFUSED. THIS NURSE TOLD PATIENT SHE IS SUPPOSED TO GO HOME TODAY, PATIENTS STATES OK AND WILL BE READY TO GET UP "IN A FEW MINUETS"
[2024-03-27] MEDS ORDERED: TORSEMIDE20 M1 PO (08:03)
[2024-03-27] MEDS ORDERED: MAGNESIUM OXID400 MG PO (08:05)
[2024-03-27] MEDS ORDERED: FAMOTIDINE20 MG PO (08:06)
[2024-03-27] MEDS ORDERED: PANTOPRAZOLE SO40 MG PO (08:09)
[2024-03-27] MEDS ORDERED: ANTIFUNGAL POWD85 GM TP (08:11)
[2024-03-27] MEDS ORDERED: NEIGHBOR P RC (08:12)
[2024-03-27] MEDS ORDERED: REMERON15 MG PO (08:13)
[2024-03-27] MEDS ORDERED: MIRTAZAPINE7.5 M1 PO (08:14)
--- NOTE | 2024-03-27 08:17 | NUR ---
Received a message from ebony at [facility]. They are unable to accept. Called Gerald STEINER. advised they are unable to accept. Reviewed [facility]. He is familiar with [facility]. He would like to have them.
--- NOTE | 2024-03-27 08:20 | NUR ---
Referral sent to [facility]
--- NOTE | 2024-03-27 08:26 | NUR ---
[facility] Advised Gerald. He would like to try [facility]. Next choice would be [facility].
--- NOTE | 2024-03-27 09:05 | NUR ---
SON ARRIVED TO TAKE PATIENT HOME. STATES THEY ARE WAITING ON THE PRIVATE DUTY HELP TO GET HERE TO GO OVER DISCHARGE INSTUCTIONS.
[2024-03-27 10:40] LABS: CALCIUM 9.4 mg/dL (8.3-10.5)
--- NOTE | 2024-03-27 11:01 | NUR ---
PATIENT DISCHARGED HOME AT THIS TIME. DISCHARGE INSTRUCTIONS REVIEWED WITH SON AND PRIVATE DUTY NURSE AT THIS TIME. ALL QUESTIONS ANSWERED. ALL PATIENT ITEMS AND BELONGINGS PACKED UP AND SENT HOME WITH PATIENT AT THIS TIME.
== END 2024-03-27 11:01 | disposition home or self-care (01) | DRG 872 ==
LOC: MED/SURG 09:10
PROVIDERS: Family Medicine; Nurse Practitioner
DX: A41.52 Sepsis due to Pseudomonas (principal); R53.81 Other malaise; E03.9 Hypothyroidism, unspecified; I48.91 Unspecified atrial fibrillation; Z79.01 Long term (current) use of anticoagulants; G47.09 Other insomnia
CPT/HCPCS: A6210; A6240; J2543

== ENCOUNTER 2024-03-29 11:20 | Emergency (ER) | payer MEDICARE, BC ==
[~2024-03-29] VITALS: Ht 165.1 cm; Wt 84.6 kg
[~2024-03-29 11:20] MED LIST changes: +ANTIFUNGAL POWD85 GM TP; +AZO D-MANNOSE500 MG PO; +FAMOTIDINE20 MG PO; +MAGNESIUM OXID400 MG PO; +MIRTAZAPINE7.5 M1 PO; +NEIGHBOR P RC; +PANTOPRAZOLE SO40 MG PO; +PROBIOTIC1 EAC2 PO; +REMERON15 MG PO; +TORSEMIDE20 M1 PO
[2024-03-29 12:08] LABS: BASO # 0.03 K/mm3 (0.02-0.10); EOS # 0.01 K/mm3 (0.04-0.40); EOS % 0.1 % (1.0-5.0); HEMATOCRIT 36.2 % (37.0-47.0); HEMOGLOBIN 11.2 g/dL (12.5-16.0); LYMPH# 0.91 K/mm3 (1.50-4.00); MEAN CELL VOLUME 76 fl (78-100); MEAN CORPUSCULAR HEMOGLOBIN 24 pg (27-31); MEAN CORPUSCULAR HGB CONC 31 g/dL (33-37); MEAN PLATELET VOLUME 10.6 fl (7.4-10.4); MONO # 0.55 K/mm3 (0.20-0.80); NEU # 6.61 K/mm3 (1.40-6.50); PLATELET COUNT 189 K/mm3 (130-400); RED BLOOD COUNT 4.76 M/mm3 (4.10-5.30); RED CELL DISTRIBUTION WIDTH 21.5 % (11.5-14.5); WHITE BLOOD COUNT 8.1 K/mm3 (4.8-10.8)
[2024-03-29 12:15] LABS: CALCIUM 8.5 mg/dL (8.3-10.5)
[2024-03-29] MEDS ORDERED: NS 1,000 ML IV SCH (12:15)
[2024-03-29 12:18] LABS: TOTAL BILIRUBIN 0.5 mg/dL (0.2-1.2)
[2024-03-29] MEDS ORDERED: Oseltamivir 75 MG CAP PO ONE (13:00)
[2024-03-29] MEDS ORDERED: TAMIFLU 75MG75 MG PO (13:12)
[2024-03-29] MEDS ORDERED: ZOFRAN ODT4 MG PO (13:15)
[2024-03-29 13:17] VITALS: BP 90/49
== END 2024-03-29 13:30 | disposition home or self-care (01) ==
LOC: ED 11:20
PROVIDERS: Physician Assistant
DX: J10.1 Influenza due to other identified influenza virus with other respiratory manifestations (principal); R11.2 Nausea with vomiting, unspecified; R19.7 Diarrhea, unspecified; Z79.01 Long term (current) use of anticoagulants